=== PATIENT | male | born 1970 | race Caucasian/White ===

== ENCOUNTER 2017-05-31 00:55 | Emergency (ER) | payer MEDICAID ==
[~2017-05-31] VITALS: Ht 167.6 cm; Wt 88.0 kg
[2017-05-31 01:00] VITALS: BP 127/79
--- NOTE | 2017-05-31 01:04 | NUR ---
TO ER BED 5
--- NOTE | 2017-05-31 01:08 | NUR ---
EPatient being evaluated by physician at bedside.
[2017-05-31] MEDS ORDERED: MARIJUANA (01:10)
[2017-05-31] MEDS ORDERED: CARI350T PO (01:10)
[2017-05-31] MEDS ORDERED: ACET-2863 PO (01:10)
--- NOTE | 2017-05-31 01:11 | NUR ---
PT BIB FAMILY C/O RT FLANK PAIN S/P HX OF BILATERAL KIDNEY STONES. PAIN 8/10. HX CHRONIC PAIN TAKE NORCO AND SOMA FOR SHOULDER PAIN. PT DENIES ANY TRAUMA, PT STS "I TOOK A NORCO AND SMOKED MARIJUANA TONIGHT". PT DENIES N/V/D; SKIN IS INTACT, PALE/WARM/DRY; AAOX4, PERRL, WITH EVEN AND STEADY GAIT; LUNGS CLEAR BL, BREATHING UNLABORED; HR EVEN AND REGULAR, BL PERIPHERAL PULSES PRESENT; BS ACTIVE X4, NO TENDERNESS TO PALPATION. PT DENIES ANY FEVER, CP, SOB, OR COUGH AT THIS TIME; PT STATES 8/10 PAIN AT THIS TIME; VSS; PATIENT POSITIONED FOR COMFORT; HOB ELEVATED; BEDRAILS UP X2; BED DOWN. UA DONE.
[2017-05-31] MEDS ORDERED: HYDROmorphone PFS 2 MG/ML SYR IM ONE (01:15)
[2017-05-31 01:44] VITALS: BP 143/75
--- NOTE | 2017-05-31 01:44 | NUR ---
Patient discharged with v/s stable. Written and verbal after care instructions given and explained. Patient alert, oriented and verbalized understanding of instructions. Ambulatory with steady gait. All questions addressed prior to discharge. ID band removed. Patient advised to follow up with PMD. Rx of NORCO 5/325MG given. Patient educated on indication of medication including possible reaction and side effects. Opportunity to ask questions provided and answered.
== END 2017-05-31 01:44 | disposition home or self-care (01) ==
LOC: MED 00:55
DX: M54.5 Low back pain (principal); R03.0 Elevated blood-pressure reading, without diagnosis of hypertension; Z88.6 Allergy status to analgesic agent; F17.210 Nicotine dependence, cigarettes, uncomplicated; F12.10 Cannabis abuse, uncomplicated; Z71.6 Tobacco abuse counseling
CPT/HCPCS: 81002; 96372; 99283; J1170

== ENCOUNTER 2017-06-27 01:50 | Inpatient (IN) | payer MEDICAID ==
[~2017-06-27] VITALS: Ht 167.6 cm; Wt 86.3 kg
[~2017-06-27 01:50] MED LIST: ACET-2863 PO; CARI350T PO; MARIJUANA
[2017-06-27 02:11] VITALS: BP 123/84
--- NOTE | 2017-06-27 02:23 | NUR ---
PT ABULATED TO ER BED 04
--- NOTE | 2017-06-27 02:30 | NUR ---
PT BIB C/O CONSTIPATION, STATES HE HAS ABD PAIN R/T CONTIPATION. PT WAS SEEN HERE LAST WEEK. PT DENIES ANY TRAUMA. PT DENIES N/V/D; SKIN IS INTACT, PINK/WARM/DRY; AAOX4, PERRL, WITH EVEN AND STEADY GAIT; LUNGS CLEAR BL, BREATHING UNLABORED; HR EVEN AND REGULAR, BL PERIPHERAL PULSES PRESENT; BS ACTIVE X4, NO TENDERNESS TO PALPATION. PT DENIES ANY FEVER, CP, SOB, OR COUGH AT THIS TIME; PT STATES 5/10 PAIN AT THIS TIME; VSS; PATIENT POSITIONED FOR COMFORT; HOB ELEVATED; BEDRAILS UP X2; BED DOWN.
[2017-06-27] MEDS ORDERED: DICYCLOMINE 20 MG/2 ML VIAL IM ONE (02:40)
[2017-06-27 02:50] LABS: HEMATOCRIT 43.6 % (36-52); HEMOGLOBIN 14.4 g/dL (12.0-18.0); MEAN CORPUSCULAR HEMOGLOBIN 30 pg (27-31); MEAN CORPUSCULAR HGB CONC 33 g/dL (33-37); MEAN CORPUSCULAR VOLUME 90 fL (80-94); PLATELET COUNT (AUTO) 297 K/uL (140-450); RED BLOOD CELL COUNT(AUTO) 4.82 MIL/uL (4.20-6.10); RED CELL DISTRIBUTION WIDTH 12.5 % (11.6-13.7); WHITE BLOOD COUNT (AUTO) 13.1 K/uL (4.8-10.8)
[2017-06-27 03:00] LABS: EOSINOPHILS % (MANUAL) 1 % (0-4); LYMPHOCYTES % (MANUAL) 6 % (20-46); MONOCYTES % (MANUAL) 4 % (5-12)
[2017-06-27 03:02] LABS: CREATININE 1.2 mg/dL (0.7-1.3)
[2017-06-27 03:10] LABS: ALBUMIN 3.5 g/dL (3.4-5.0); TOTAL BILIRUBIN 0.2 mg/dL (0.0-1.0)
--- NOTE | 2017-06-27 03:15 | NUR ---
TAKE PT. TO CT
--- NOTE | 2017-06-27 03:30 | NUR ---
PT. BACK FROM CT.
[2017-06-27] MEDS ORDERED: metroNIDAZOLE 500 MG/NS PREMIX 100 ML IV ONE (04:55)
[2017-06-27] MEDS ORDERED: ONDANSETRON 4 MG/2 ML VIAL IVP ONE (04:55)
[2017-06-27] MEDS ORDERED: NACL 0.9% 1,000 ML IV ONE (04:55)
[2017-06-27] MEDS ORDERED: MORPHINE SULFATE 4 MG/ML SYR IVP ONE (04:55)
[2017-06-27] MEDS ORDERED: cefTRIAXone 1,000 MG VIAL ONE (05:09)
[2017-06-27] MEDS ORDERED: NACL 0.9% 1,000 ML IV SCH (05:12)
[2017-06-27] MEDS ORDERED: MORPHINE SULFATE 2 MG/ML SYR IVP PRN (05:15)
[2017-06-27] MEDS ORDERED: ONDANSETRON 4 MG/2 ML VIAL IM/IVP PRN (05:15)
[2017-06-27] MEDS ORDERED: DOCUSATE SODIUM 100 MG GELCAP PO PRN (05:15)
[2017-06-27] MEDS ORDERED: HYDROcodone/APAP 7.5/325 MG 1 TAB PO PRN (05:15)
[2017-06-27] MEDS ORDERED: ACETAMINOPHEN 325 MG TAB PO PRN (05:15)
--- NOTE | 2017-06-27 06:10 | NUR ---
Patient will be admitted to care of DR. PEREZ. Admited to TELEMETRY. Will go to [id number]. Belongings list completed. Report to SUSAN CASEY.
[2017-06-27 06:12] VITALS: BP 124/72
--- NOTE | 2017-06-27 06:25 | NUR ---
PT CAME FROM ER VIA [facility] AT 0615, SOON THE PATIENT ARRIVED IN HIS ROOM, HE INSISTED ON GOING OUT TO SMOKE AND MOVE HIS CAR. INFORMED HIM OF THE HOSPITAL POLICY OF NO SMOKING. PT WAS AGITATED AND KEPT ON INSISTING THAT HE SHOULD LEAVE. ELENI COIN MACHINE SUPERVISOR, JAIMEE RN LANGUAGE TEACHER, SECURITY PRESENT AND STILL INSISTED TO GO AMA, AND DR. BAY MADE AWARE. PT LEFT AMBULATORY, IV ACCESS AND TELE MONITOR WAS REMOVED.
[2017-06-27 06:47] LABS: PROTHROMBIN TIME 9.9 secs (10.8-13.4)
[2017-06-27 07:21] LABS: CHOL/HDL RATIO 3.1 (1-4.5); FREE T4 (FREE THYROXINE) 0.92 ng/dL (0.76-1.46); MAGNESIUM 2.1 mg/dL (1.8-2.4); PHOSPHORUS 3.9 mg/dL (2.5-4.9); THYROID STIMULATING HORMONE 2.09 uIU/mL (0.34-3.74)
[2017-06-27] MEDS ORDERED: PSYLLIUM 12.2 GM/PKT PO SCH (09:00)
--- NOTE | 2017-06-27 12:23 | NUR ---
CM NOTE PER FURNACE OPERATOR OIL OR GAS CHRISSY, REVIEWS SHOULD BE SENT TO BOTH [facility] AND [facility]3]. FAXED INITIAL REVIEW TO [facility] [phone] AND TO [facility]3] [phone]
== END 2017-06-27 06:25 | disposition left against medical advice (07) ==
LOC: MED 01:50 → MTU 05:21
PROVIDERS: ADMIT Family Medicine; ATTEND Family Medicine
DX: K80.00 Calculus of gallbladder with acute cholecystitis without obstruction (principal); F12.90 Cannabis use, unspecified, uncomplicated; K59.00 Constipation, unspecified; R10.9 Unspecified abdominal pain; Z53.21 Procedure and treatment not carried out due to patient leaving prior to being seen by health care provider; Z88.6 Allergy status to analgesic agent
CPT/HCPCS: 36415; 80053; 82140; 82150; 83690; 83735; 83880; 84100; 84436; 84439; 84443; 84479; 84484; 85025; 85610; 85730; 93005; 96365; 96367; 96372; 96375; 99285; J0500; J0696; J2270; J2405; J3490; J7030

== ENCOUNTER 2017-07-10 20:09 | Emergency (ER) | payer MEDICAID ==
[~2017-07-10] VITALS: Ht 167.6 cm; Wt 85.0 kg
[~2017-07-10 20:09] MED LIST changes: -ACET-2863 PO; -CARI350T PO
[2017-07-10 20:25] VITALS: BP 140/79
--- NOTE | 2017-07-10 21:54 | NUR ---
PATIENT LEFT WITHOUT BEING SEEN BY DR. LAZCANO. NO FURTHER CARE PROVIDED FOR PATIENT.
[2017-07-11] MEDS ORDERED: MAGN400S60 PO (00:57)
[2017-07-11] MEDS ORDERED: ACET-2858 PO (00:57)
[2017-07-11] MEDS ORDERED: IBUP-2213 PO (00:57)
[2017-07-11] MEDS ORDERED: DOCU-299 PO (13:49)
[2017-07-11] MEDS ORDERED: NICO14TD30 TD (13:49)
[2017-07-11] MEDS ORDERED: ACET-1182 PO (13:49)
[2017-07-11] MEDS ORDERED: ONDA2SOL45 IM/IVP (13:49)
[2017-07-11] MEDS ORDERED: TOR30I IVP (13:49)
== END 2017-07-10 21:54 | disposition left against medical advice (07) ==
LOC: MED 20:09
DX: R10.9 Unspecified abdominal pain (principal); Z53.21 Procedure and treatment not carried out due to patient leaving prior to being seen by health care provider

== ENCOUNTER 2017-07-10 22:20 | Observation (INO) | payer MEDICAID ==
[~2017-07-10] VITALS: Ht 167.6 cm; Wt 85.3 kg
[2017-07-10 22:31] VITALS: BP 115/59
--- NOTE | 2017-07-11 00:26 | NUR ---
PT AMBULATED TO ER BED 4
--- NOTE | 2017-07-11 00:26 | NUR ---
Karissa bacon in ED - 07/11/17 at 0350 by MEDDM AMBULTED TO ER BED 4
--- NOTE | 2017-07-11 00:30 | NUR ---
47 Y/O M W/C/O EPIGASTRIC PAIN, AND NAUSEA X YESTERDAY. MED HX GALLSTONES
--- NOTE | 2017-07-11 00:30 | NUR ---
PT BIB FAMILY C/O ABD PAIN/HX GALLSTONES. PT DENIES N/V/D; SKIN IS INTACT, PINK/WARM/DRY; AAOX4, PERRL, WITH EVEN AND STEADY GAIT; LUNGS CLEAR BL, BREATHING UNLABORED; HR EVEN AND REGULAR, BL PERIPHERAL PULSES PRESENT; BS ACTIVE X4, NO TENDERNESS TO PALPATION. PT DENIES ANY FEVER, CP, SOB, OR COUGH AT THIS TIME; PT STATES 5/10 PAIN AT THIS TIME; VSS; PATIENT POSITIONED FOR COMFORT; HOB ELEVATED; BEDRAILS UP X2; BED DOWN.
[2017-07-11] MEDS ORDERED: NACL 0.9% 1,000 ML IV ONE (00:37)
[2017-07-11] MEDS ORDERED: NICOTINE TRANSD SYS 21 MG/24 HR PATCH TD STA (00:37)
--- NOTE | 2017-07-11 00:39 | NUR ---
PT DR ORONA PT OK TO GO TO HIS CAR TO GRAB SOME STUFF.
[2017-07-11] MEDS ORDERED: MORPHINE SULFATE 4 MG/ML SYR IVP ONE (00:40)
[2017-07-11] MEDS ORDERED: ONDANSETRON 4 MG/2 ML VIAL IVP ONE (00:40)
[2017-07-11] MEDS ORDERED: KETOROLAC 30 MG/ML VIAL IVP ONE (00:40)
[2017-07-11] MEDS ORDERED: IBUP-2213 PO (00:57)
[2017-07-11] MEDS ORDERED: ACET-2858 PO (00:57)
[2017-07-11] MEDS ORDERED: MAGN400S60 PO (00:57)
[2017-07-11 01:03] LABS: BASOPHILS # (AUTO) 0.5 K/uL (0.00-0.22); EOSINOPHILS # (AUTO) 0.1 K/uL (0-0.4)
[2017-07-11 01:09] LABS: BASOPHILS % (AUTO) 3.5 % (0.0-2.0); EOSINOPHILS % (AUTO) 0.7 % (0.0-4.0); HEMATOCRIT 46.1 % (36-52); HEMOGLOBIN 15.5 g/dL (12.0-18.0); LYMPHOCYTES # (AUTO) 2.5 K/uL (2.0-11.5); LYMPHOCYTES % (AUTO) 17.9 % (20.5-51.1); MEAN CORPUSCULAR HEMOGLOBIN 31 pg (27-31); MEAN CORPUSCULAR HGB CONC 34 g/dL (33-37); MEAN CORPUSCULAR VOLUME 91 fL (80-94); MONOCYTES % (AUTO) 7.1 % (1.7-9.3); NEUTROPHILS # (AUTO) 9.9 K/uL (1.8-7.7); NEUTROPHILS % (AUTO) 70.8 % (42.2-75.2); PLATELET COUNT (AUTO) 343 K/uL (140-450); RED BLOOD CELL COUNT(AUTO) 5.07 MIL/uL (4.20-6.10); RED CELL DISTRIBUTION WIDTH 12.1 % (11.6-13.7)
[2017-07-11 01:13] LABS: ANION GAP 14.2 (8-16); CARBON DIOXIDE 26.4 mmol/L (21-32); CREATININE 1.2 mg/dL (0.7-1.3); POTASSIUM 3.6 mmol/L (3.5-5.1)
[2017-07-11 01:18] LABS: ALBUMIN 3.9 g/dL (3.4-5.0); TOTAL BILIRUBIN 0.1 mg/dL (0.0-1.0)
[2017-07-11] MEDS ORDERED: LEVOFLOXACIN 750 MG/D5W PREMIX 150 ML IV ONE (01:20)
--- NOTE | 2017-07-11 01:45 | NUR ---
HOUSE SUP CALLED RDING PATCH D/T NOT AVAILABLE IN ER.
--- NOTE | 2017-07-11 02:02 | NUR ---
PT SLEEPING, VSS. FAMILY AT BEDSIDE.
[2017-07-11] MEDS ORDERED: NACL 0.9% 1,000 ML IV SCH (02:33)
[2017-07-11] MEDS ORDERED: ONDANSETRON 4 MG/2 ML VIAL IM/IVP PRN (02:35)
[2017-07-11] MEDS ORDERED: KETOROLAC 30 MG/ML VIAL IVP PRN (02:35)
[2017-07-11] MEDS ORDERED: ACETAMINOPHEN 325 MG TAB PO PRN (02:35)
[2017-07-11] MEDS ORDERED: DOCUSATE SODIUM 100 MG GELCAP PO PRN (02:35)
--- NOTE | 2017-07-11 02:52 | NUR ---
Patient will be admitted to care of DR MARY. Admited to TELEMETRY. Will go to room 119B. Belongings list completed. Report to SUSAN HERMOSILLO..
[2017-07-11 02:53] LABS: PROTHROMBIN TIME 9.6 secs (10.8-13.4)
--- NOTE | 2017-07-11 03:00 | NUR ---
PT TRASFERED TO FLOOR VIA GURNEY, ACCOMPANIED BY RN AND EMT.
[2017-07-11 03:02] LABS: APPEARANCE,URINE CLEAR (CLEAR); BILIRUBIN,URINE NEGATIVE (NEGATIVE); BLOOD, URINE NEGATIVE (NEGATIVE); COLOR,URINE YELLOW (YELLOW); LEUKOCYTE ESTERASE ,URINE NEGATIVE (NEGATIVE); NITRITE, URINE NEGATIVE (NEGATIVE); UGLUCOSE NEGATIVE (NEGATIVE)
[2017-07-11 03:04] LABS: CHOL/HDL RATIO 3.4 (1-4.5); FREE T4 (FREE THYROXINE) 0.84 ng/dL (0.76-1.46); MAGNESIUM 2.1 mg/dL (1.8-2.4); PHOSPHORUS 3.9 mg/dL (2.5-4.9); THYROID STIMULATING HORMONE 1.42 uIU/mL (0.34-3.74)
[2017-07-11] MEDS ORDERED: NICOTINE TRANSD SYS 14 MG/24 HR PATCH TD SCH ×2 (03:05→09:00)
[2017-07-11 03:09] LABS: BARBITURATE, URINE NEG. ng/ml (NEG <=200); BENZODIAZEPINE, URINE NEG. ng/mL (NEG <=200); CANNABINOID, URINE POS. ng/mL (NEG <=50); COCAINE, URINE NEG. ng/mL (NEG <=300); OPIATE, URINE NEG. ng/mL (NEG <=2000); PHENCYCLIDINE SCREEN,URINE NEG. ng/mL (NEG <=25)
--- NOTE | 2017-07-11 03:15 | NUR ---
Admitted from , with chief complaint of ABDOMINAL PAIN , 47 y/o ,Male, Appropriate, oriented to call light, bed, phone,television, bathroom, smoking policy, visiting hours, procedures, ID bracelet on. Belongings list checked. AT BEDSIDE, PT AAO, CLAIMED CAN I HAVE CRACKERS, EXPLAINED PT NPO, BODY ASSESSMENT, SKIN INTACT
[2017-07-11 03:18] VITALS: BP 104/51
--- NOTE | 2017-07-11 03:58 | NUR ---
SMOKING CESSATION TEACHING GIVEN
--- NOTE | 2017-07-11 05:52 | NUR ---
PT MOTHER AT BEDSIDE, PT AAO, WANTS TO EAT, APPLIED SEQUENTIAL BUT PT REFUSED, PT AWARE NPO, IVF ONGOING WELL TOLERATED.
[2017-07-11] MEDS ORDERED: cefTRIAXone 1,000 MG VIAL ONE (06:04)
--- NOTE | 2017-07-11 06:45 | NUR ---
ROCEPHIN THAT STARTED AT 0609 BY VELASQUEZ PADILLA RN.FINISHED AT 0640.PT TOLERATED WELL.
--- NOTE | 2017-07-11 07:28 | NUR ---
PT SLEEPING AT THIS TIME, WILL ENDORSED TO TIFFANY ,IVF ONGOING WELL TOLERATED, NO ADVERSE REACTION FROM ROCEPHIN
--- NOTE | 2017-07-11 07:37 | NUR ---
TALKED TO PHARMACIST REGARDING NICOTINE PATCH, PER PHARMACIST WILL START 0900
--- NOTE | 2017-07-11 08:00 | NUR ---
RECEIVED REPORT FROM AUDIT MACHINE OPERATOR RN FOR CONTINUITY OF CARE. PATIENT SLEEPING , BUT EASILY AWAKE NO S/S OF RESP DISTRESS NOTED , NO COMPLAIN OF PAIN IV SITE RIGHT HAND GAUGE 22 INTACT AND PATENT. IVF INFUSING WELL . PLAN OF CARE DISCUSSED WITH THE PATIENT VITALS STABLE WILL CONTINUE TO MONITOR.
--- NOTE | 2017-07-11 09:30 | NUR ---
NO MEDS DUE TO BE GIVEN , DENIES ANY PAIN AWARE OF GOING TO SURGERY , KEPT PT NPO
[2017-07-11 10:09] VITALS: BP 110/69
--- NOTE | 2017-07-11 11:29 | NUR ---
RECEIVED A CALL FRO JET FROM [facility] ABOUT THIS PATIENT. I FAXED FACE SHEET, ER REPORT AND H&P TO HER AT [phone] PHONE [phone]. SHE SAID IF THIS PATIENT WILL NEED SURGERY, SHE WANTS HIM TRANSFERED TO [facility]. DR. NATHALIE GATICA.
--- NOTE | 2017-07-11 11:47 | NUR ---
SPOKE WITH OSWMYA FROM [facility]. I FAXED HER THE ORDER FOR PATIENT TO BE TRANSFERED TO CONTRACTED FACILITY. SHE SAID HE WILL GO TO [place] [id number] [facility] [id number] AUTH FOR TRANSPORT IS [id number]. SHE ASKED THAT OUR DOCTOR CALL DR. DURAN , . I INFORMED DR. ZELAYA.
--- NOTE | 2017-07-11 13:31 | NUR ---
RECEIVED A CALL FROM SOWMYA FROM [employer] THE PATIENT WILL GO TO MED SURG FLOOR ROOM 306A UNDER DR. DONALD DURAN. CALL REPORT TO [phone]. WILL INFORM TIFFANY DAVIS.
[2017-07-11] MEDS ORDERED: ACET-1182 PO (13:49)
[2017-07-11] MEDS ORDERED: NICO14TD30 TD (13:49)
[2017-07-11] MEDS ORDERED: TOR30I IVP (13:49)
[2017-07-11] MEDS ORDERED: DOCU-299 PO (13:49)
[2017-07-11] MEDS ORDERED: ONDA2SOL45 IM/IVP (13:49)
--- NOTE | 2017-07-11 14:37 | NUR ---
PATIENT REFUSES TO BE TRANSFERRED TO [facility] VIA AMBULANCE. DR LOMBARDI SPOKE TO THE PATIENT AND EXPLAINED TO HIM THAT HE CAN NOT DRIVE HIMSELF AND HE WILL LOSE HIS TRANSFER IF HE DECIDES TO LEAVE. RISKS OF LEAVING AGAINST MEDICAL ADVICE GIVEN TO THE PATIENT. PATIENT VERBALIZED UNDERSTANDING. PATIENT REFUSED TO SIGN AMA PAPER. IV LINE DISCONTINUED. PATIENT LEFT WITH ALL HIS BELONGINGS
--- NOTE | 2017-07-11 16:08 | NUR ---
I CALLED [facility] AND SPOKE WITH SOWMYA AND INFORMED HER THAT PATIENT ELOPED. PRAVIN DAVIS TO CALL [facility] TO INFORM THEM.
--- NOTE | 2017-07-11 16:12 | NUR ---
SPOKE WITH ARIANA FROM [facility] AND INFORMED THEM THAT PATIENT WILL NO LONGER BE TRANSFERRED
[2017-07-12 06:15] LABS: T4 (THYROXINE) 6.8 ug/dL (4.5-12.0)
== END 2017-07-11 14:35 | disposition left against medical advice (07) ==
LOC: MED 22:20 → MTU 07-11 02:39
PROVIDERS: ADMIT Family Medicine Sports Medicine; ATTEND Family Medicine Sports Medicine
DX: K80.20 Calculus of gallbladder without cholecystitis without obstruction (principal); N20.0 Calculus of kidney; R00.0 Tachycardia, unspecified; F17.200 Nicotine dependence, unspecified, uncomplicated; F19.10 Other psychoactive substance abuse, uncomplicated; E66.9 Obesity, unspecified; Z68.30 Body mass index [BMI] 30.0-30.9, adult
CPT/HCPCS: 36415; 71010; 76705; 80053; 80061; 80305; 81003; 83036; 83605; 83690; 83735; 84100; 84436; 84439; 84443; 84479; 85025; 85610; 85730; 87081; 93005; 96361; 96365; 96367; 96375; 99285; G0378; G0482; J0696; J1885; J1956; J7030; J7060; Q0092; J2270; J2405

== ENCOUNTER 2017-08-05 03:12 | Emergency (ER) | payer MEDICAID ==
[~2017-08-05] VITALS: Ht 167.6 cm; Wt 86.2 kg
[~2017-08-05 03:12] MED LIST changes: +ACET-1182 PO; +ACET-2858 PO; +DOCU-299 PO; +IBUP-2213 PO; +MAGN400S60 PO; +NICO14TD30 TD; +ONDA2SOL45 IM/IVP; +TOR30I IVP
[2017-08-05 03:48] VITALS: BP 138/63
--- NOTE | 2017-08-05 03:55 | NUR ---
Patient to OF.
--- NOTE | 2017-08-05 04:30 | NUR ---
[place] from all abd incisions removed. Large amt of redness noted around each incision with tissue build up. Slight bleeding noted from staple wounds but stopped within a couple minutes. Davin well.
[2017-08-05] MEDS ORDERED: BACITRACIN OINT 500 UNITS/GM PKT TP ONE (04:35)
[2017-08-05 05:20] VITALS: BP 128/76
--- NOTE | 2017-08-05 05:20 | NUR ---
Patient discharged with v/s stable. Written and verbal after care instructions given and explained. Patient verbalized understanding. Ambulatory with steady gait. All questions addressed prior to discharge. Advised to follow up with PMD.
== END 2017-08-05 05:20 | disposition home or self-care (01) ==
LOC: MED 03:12
DX: Z48.02 Encounter for removal of sutures (principal); Z90.49 Acquired absence of other specified parts of digestive tract; F11.10 Opioid abuse, uncomplicated
CPT/HCPCS: 99281

== ENCOUNTER 2017-10-25 18:26 | Emergency (ER) | payer MEDICAID ==
[~2017-10-25] VITALS: Ht 167.6 cm; Wt 88.2 kg
[2017-10-25 18:58] VITALS: BP 118/78
--- NOTE | 2017-10-25 19:42 | NUR ---
AMBULATED TO ER BED OF2
--- NOTE | 2017-10-25 19:55 | NUR ---
PATIENT PRESENTS TO ED WITH c/o runny nose, cough, body aches, fever x1 day . PT STATES symptoms started a day ago . DENIES N/V/D; SKIN IS PINK/WARM/DRY; AAOX4 WITH EVEN AND STEADY GAIT; LUNGS CLEAR BL; HR EVEN AND REGULAR; PT DENIES ANY FEVER, CP, SOB, OR COUGH AT THIS TIME; PATIENT STATES PAIN OF 6/10 AT THIS TIME; VSS; PATIENT POSITIONED FOR COMFORT; HOB ELEVATED; BEDRAILS UP X2; BED DOWN. ER MD MADE AWARE OF PT STATUS.
[2017-10-25] MEDS ORDERED: IBUPROFEN 800 MG TAB PO ONE (20:00)
[2017-10-25] MEDS ORDERED: IBUPROFEN 800 MG TAB ONE (20:04)
[2017-10-25 20:17] VITALS: BP 116/78
--- NOTE | 2017-10-25 20:17 | NUR ---
Patient discharged with v/s stable. Written and verbal after care instructions given and explained. Patient alert, oriented and verbalized understanding of instructions. Ambulatory with steady gait. All questions addressed prior to discharge. ID band removed. Patient advised to follow up with PMD. Rx of motrin 800mg, promethazine hcl/dextronethtrophan given. Patient educated on indication of medication including possible reaction and side effects. Opportunity to ask questions provided and answered.
== END 2017-10-25 20:17 | disposition home or self-care (01) ==
LOC: MED 18:26
DX: B34.9 Viral infection, unspecified (principal); Z90.49 Acquired absence of other specified parts of digestive tract; Z88.6 Allergy status to analgesic agent
CPT/HCPCS: 99283

== ENCOUNTER 2018-03-30 00:01 | Emergency (ER) | payer MEDICAID ==
[~2018-03-30] VITALS: Ht 167.6 cm; Wt 82.3 kg
[2018-03-30 00:04] VITALS: BP 135/79
[2018-03-30 02:44] VITALS: BP 130/75
[2018-03-30] MEDS ORDERED: KETOROLAC 60 MG/2 ML VIAL IM ONE (03:00)
== END 2018-03-30 02:44 | disposition home or self-care (01) ==
LOC: MED 00:01
DX: M79.1 Myalgia (principal); R05 Cough; K46.9 Unspecified abdominal hernia without obstruction or gangrene; R50.9 Fever, unspecified; F17.210 Nicotine dependence, cigarettes, uncomplicated; Z90.49 Acquired absence of other specified parts of digestive tract; Z88.8 Allergy status to other drugs, medicaments and biological substances
CPT/HCPCS: 96372; 99283; J1885

== ENCOUNTER 2018-08-09 01:23 | Emergency (ER) | payer MEDICAID ==
[~2018-08-09] VITALS: Ht 167.6 cm; Wt 83.9 kg
[~2018-08-09 01:23] MED LIST changes: -ACET-2858 PO; +HYDR-5092 PO
[2018-08-09 01:27] VITALS: BP 124/80
[2018-08-09] MEDS ORDERED: KETOROLAC 30 MG/ML VIAL IM ONE (03:05)
[2018-08-09] MEDS ORDERED: HYDROcodone/APAP 5/325 MG 1 TAB TAB PO ONE (03:05)
[2018-08-09 03:32] VITALS: BP 124/80
== END 2018-08-09 03:32 | disposition home or self-care (01) ==
LOC: MED 01:23
DX: K43.9 Ventral hernia without obstruction or gangrene (principal); F17.210 Nicotine dependence, cigarettes, uncomplicated; Z90.49 Acquired absence of other specified parts of digestive tract; Z79.1 Long term (current) use of non-steroidal anti-inflammatories (NSAID); Z79.899 Other long term (current) drug therapy
CPT/HCPCS: 99283

== ENCOUNTER 2018-09-20 02:45 | Emergency (ER) | payer MEDICAID ==
[~2018-09-20] VITALS: Ht 167.6 cm; Wt 81.6 kg
[2018-09-20 02:54] VITALS: BP 119/63
[2018-09-20] MEDS ORDERED: KETOROLAC 60 MG/2 ML VIAL IM ONE (03:30)
[2018-09-20 04:00] VITALS: BP 119/63
== END 2018-09-20 04:00 | disposition home or self-care (01) ==
LOC: MED 02:45
DX: K42.9 Umbilical hernia without obstruction or gangrene (principal); Z71.6 Tobacco abuse counseling; Z90.49 Acquired absence of other specified parts of digestive tract; Z79.899 Other long term (current) drug therapy; Z79.1 Long term (current) use of non-steroidal anti-inflammatories (NSAID)
CPT/HCPCS: 96372; 99283; J1885

== ENCOUNTER 2018-10-11 02:44 | Emergency (ER) | payer MEDICAID ==
[~2018-10-11] VITALS: Ht 167.6 cm; Wt 81.6 kg
[2018-10-11 02:51] VITALS: BP 127/85
[2018-10-11] MEDS ORDERED: IBUPROFEN 400 MG TAB PO ONE (05:25)
[2018-10-11 05:37] VITALS: BP 117/75
== END 2018-10-11 05:37 | disposition home or self-care (01) ==
LOC: MED 02:44
DX: T14.8XXA Other injury of unspecified body region, initial encounter (principal); Z90.49 Acquired absence of other specified parts of digestive tract; Z79.899 Other long term (current) drug therapy; Z79.1 Long term (current) use of non-steroidal anti-inflammatories (NSAID); W22.8XXA Striking against or struck by other objects, initial encounter; Y93.89 Activity, other specified; Y92.89 Other specified places as the place of occurrence of the external cause; Y99.8 Other external cause status
CPT/HCPCS: 99282

== ENCOUNTER 2018-12-08 19:49 | Emergency (ER) | payer MEDICAID ==
[~2018-12-08] VITALS: Ht 167.6 cm; Wt 81.6 kg
[2018-12-08 19:51] VITALS: BP 111/77
--- NOTE | 2018-12-08 19:56 | NUR ---
PT TAKEN TO BED 7
--- NOTE | 2018-12-08 20:03 | NUR ---
48/M PRESENTS TO ED, C/O N/V [id number] AND PERIUMBILICAL HERNIA PAIN, SINCE LAST NIGHT. REPORTS DIARRHEA THIS AM. PT DENIES FEVER, CP, SOB, CONSTIPATION, DYSURIA. PT AOX4, GCS 15, RR EVEN AND UNLABORED. LUNG SOUNDS CLEAR BL. BS ACTIVE X4, ABD SOFT ROUND TENDER TO PERIUMBILICAL, DENIES LOWER QUADRANT TENDERNESS. HX UMBILICAL HERNIA, CHOLECYSTECTOMY OTC IBUPROFEN LAST NIGHT WITH NO RELIEF
[2018-12-08] MEDS ORDERED: ONDANSETRON 4 MG ODT PO ONE (20:10)
--- NOTE | 2018-12-08 20:23 | NUR ---
Dr. Guzman evaluating patient at bedside.
[2018-12-08] MEDS ORDERED: KETOROLAC 30 MG/ML VIAL IM ONE (20:25)
--- NOTE | 2018-12-08 20:35 | NUR ---
PT REFUSED TORADOL IM, PT REQUESTING VICODIN OR PO PAIN MED, ER MD MADE AWARE. PER ER MD, PT CAN JUST TAKEN RX NORCO AT HOME.
[2018-12-08 20:39] VITALS: BP 108/64
--- NOTE | 2018-12-08 20:39 | NUR ---
Patient discharged with v/s stable. Written and verbal after care instructions given and explained. Patient alert, oriented and verbalized understanding of instructions. Ambulatory with steady gait. All questions addressed prior to discharge. ID band removed. Patient advised to follow up with PMD. Rx of NORCO, COLACE given. Patient educated on indication of medication including possible reaction and side effects. Opportunity to ask questions provided and answered.
== END 2018-12-08 20:39 | disposition home or self-care (01) ==
LOC: MED 19:49
DX: K43.2 Incisional hernia without obstruction or gangrene (principal); Z79.891 Long term (current) use of opiate analgesic; Z79.1 Long term (current) use of non-steroidal anti-inflammatories (NSAID); Z79.899 Other long term (current) drug therapy; Z90.49 Acquired absence of other specified parts of digestive tract
CPT/HCPCS: 99283; Q0162; J1885

== ENCOUNTER 2019-01-04 12:34 | Inpatient (IN) | payer MEDICAID ==
[~2019-01-04] VITALS: Ht 167.6 cm; Wt 81.2 kg
[2019-01-04 13:10] VITALS: BP 119/77
--- NOTE | 2019-01-04 13:17 | NUR ---
PT WHEEL CHAIR ASSISTED BACK TO THE LOBBY BY HIS FAMILY
--- NOTE | 2019-01-04 13:57 | NUR ---
PT BIB WHEELCHAIR TO ER BED 9
--- NOTE | 2019-01-04 13:59 | NUR ---
PT REFUSING TO CHANGE INTO GOWN, REFUSED NURSE ASSESSMENT AT THIS TIME, EDMD AWARE.
--- NOTE | 2019-01-04 14:30 | NUR ---
CAME BACK FROM LUNCH BREAK, PER COLEMAN RN, PT REFUSED TO DO PHYSICAL ASSESSMENT. PT IS SLEEPING AT THIS TIME. BEDSIDEM ONITOR SHOWS SR. O2 SATS 98%. NO S/S OF RESPIRATORY DISTRESS NOTED.
[2019-01-04] MEDS ORDERED: NACL 0.9% 1,000 ML IV ONE (15:58)
[2019-01-04] MEDS ORDERED: NACL 0.9% 1,000 ML IV SCH (15:58)
[2019-01-04] MEDS ORDERED: DICYCLOMINE HCL LIQUID 10 MG/5 ML UDC PO ONE (16:00)
[2019-01-04] MEDS ORDERED: MORPHINE SULFATE 4 MG/ML SYR IVP ONE (16:00)
[2019-01-04] MEDS ORDERED: PROMETHAZINE 25 MG/ML VIAL IM ONE (16:00)
[2019-01-04 16:32] LABS: BASOPHILS # (AUTO) 0.1 K/uL (0.00-0.22); BASOPHILS % (AUTO) 0.4 % (0.0-2.0); EOSINOPHILS # (AUTO) 0.1 K/uL (0-0.4); EOSINOPHILS % (AUTO) 0.4 % (0.0-4.0); HEMATOCRIT 54.7 % (36-52); HEMOGLOBIN 18.4 g/dL (12.0-18.0); LYMPHOCYTES # (AUTO) 1.4 K/uL (2.0-11.5); LYMPHOCYTES % (AUTO) 7.1 % (20.5-51.1); MEAN CORPUSCULAR HEMOGLOBIN 31 pg (27-31); MEAN CORPUSCULAR HGB CONC 34 g/dL (33-37); MEAN CORPUSCULAR VOLUME 90.9 fL (80-94); MONOCYTES # (AUTO) 1.1 K/uL (0.8-1.0); MONOCYTES % (AUTO) 5.7 % (1.7-9.3); NEUTROPHILS # (AUTO) 16.8 K/uL (1.8-7.7); NEUTROPHILS % (AUTO) 86.4 % (42.2-75.2); PLATELET COUNT (AUTO) 389 K/uL (140-450); RED BLOOD CELL COUNT(AUTO) 6.02 MIL/uL (4.20-6.10); RED CELL DISTRIBUTION WIDTH 13.1 % (11.6-13.7); WHITE BLOOD COUNT (AUTO) 19.5 K/uL (4.8-10.8)
--- NOTE | 2019-01-04 17:00 | NUR ---
PT STATED PAIN RELIVED AFTER PAIN MEDICATION, GIRLFRIEND AT BEDSIDE.
[2019-01-04 17:09] LABS: ALBUMIN 4.2 g/dL (3.4-5.0); AMYLASE 58 U/L (25-115); ANION GAP 14.5 (8-16); ASPARTATE AMINOTRANSFERASE 26 U/L (15-37); CARBON DIOXIDE 29.2 mmol/L (21-32); CHLORIDE 101 mmol/L (98-107); CREATININE 1.1 mg/dL (0.7-1.3); GFR ARICAN-AMERICAN 91 mL/min (>90); GLUCOSE 134 mg/dL (74-106); POTASSIUM 4.7 mmol/L (3.5-5.1); SODIUM SERUM 140 mmol/L (136-145); TOTAL BILIRUBIN 0.5 mg/dL (0.0-1.0)
[2019-01-04 17:24] LABS: UREA NITROGEN, BLOOD 12 mg/dL (7-18)
[2019-01-04 17:25] LABS: LIPASE 113 U/L (73-393)
[2019-01-04] MEDS ORDERED: HALOPERIDOL IM 5 MG/ML VIAL IM ONE (17:25)
[2019-01-04] MEDS ORDERED: diphenhydrAMINE 50 MG/ML VIAL IM ONE (17:25)
--- NOTE | 2019-01-04 18:30 | NUR ---
PT SLEEPING BUT AROUSABLE, PT STATED PAIN RELIVED. CONNIEFRIEND AT BEDSIDE.
[2019-01-04] MEDS ORDERED: NACL 0.9% 2,000 ML IV SCH (18:44)
--- NOTE | 2019-01-04 19:11 | NUR ---
REPORT RECIEVED FROM DAY SHIFT RN, RICARDA. PATIENT IN BED SLEEPING. EASILY AROUSABLE. ACTING APPROPRIATE.
[2019-01-04] MEDS ORDERED: ACETAMINOPHEN 325 MG TAB PO PRN (19:25)
[2019-01-04] MEDS ORDERED: MORPHINE SULFATE 2 MG/ML SYR IVP PRN (19:25)
[2019-01-04] MEDS ORDERED: ONDANSETRON 4 MG/2 ML VIAL IM/IVP PRN (19:25)
[2019-01-04] MEDS ORDERED: DOCUSATE SODIUM 100 MG GELCAP PO PRN (19:25)
[2019-01-04] MEDS ORDERED: HYDROcodone/APAP 7.5/325 MG 1 TAB PO PRN (19:25)
--- NOTE | 2019-01-04 19:40 | NUR ---
PATIENT GIVEN URINAL TO COLLECT URINE SAMPLE.
[2019-01-04 20:11] LABS: APPEARANCE,URINE CLEAR (CLEAR); BILIRUBIN,URINE NEGATIVE (NEGATIVE); BLOOD, URINE NEGATIVE (NEGATIVE); COLOR,URINE YELLOW (YELLOW); LEUKOCYTE ESTERASE ,URINE NEGATIVE (NEGATIVE); NITRITE, URINE NEGATIVE (NEGATIVE); UGLUCOSE NEGATIVE (NEGATIVE)
[2019-01-04 20:15] LABS: BARBITURATE, URINE NEG. ng/ml (NEG <=200); BENZODIAZEPINE, URINE NEG. ng/mL (NEG <=200); CANNABINOID, URINE POS. ng/mL (NEG <=50); COCAINE, URINE NEG. ng/mL (NEG <=300); OPIATE, URINE POS. ng/mL (NEG <=2000); PHENCYCLIDINE SCREEN,URINE NEG. ng/mL (NEG <=25)
--- NOTE | 2019-01-04 20:32 | NUR ---
PATIENT ADMITTED TO THE CARE OF DR DOMINGUEZ. TAKEN BY WHEELCHAIR TO [facility] FLOOR ROOM 105-B. PATIENT STABLE DURING TRANSFER. REPORT GIVEN TO FLOOR NURSE.
[2019-01-04 20:35] VITALS: BP 138/92
--- NOTE | 2019-01-04 20:35 | NUR ---
RECEIVED PT REPORT FROM ALEXIS RN AT BEDSIDE PT TRANSPORTED VIA W/C TO ROOM 105 AND AMBULATED TO BED A. PT PROMPTLY VOMITED A LARGE AMOUNT X1. PT AOX2 AND IS DROWSY BUT AROUSABLE TO NAME AND LIGHT TOUCH. PT HAS NO C/O OF PAIN AT THIS TIME. LUNGS ARE CLEAR, BELLY IS DISTENDED AND FIRM BUT NOT RIDGED. BOWEL SOUNDS HYPOACTIVE. SKIN INTACT AND PT HAS 20GUAGE ON LEFT F/ARM INTACT AND FLUSHED PATENT. FAMILY AT BEDSIDE. PLATING ENGINEER, GLORIA PASSED INSTRUCTIONS TO PHONE DR. PEREZ, SURGEON, WHEN PT ARRIVES IN ROOM. DR. PEREZ CALLED AND MESSAGE LEFT THAT PT ARRIVED IN ROOOM 105A AND TO PHONE HOSPITAL BACK.
[2019-01-04 21:03] LABS: PROTHROMBIN TIME 9.6 secs (10.8-13.4)
--- NOTE | 2019-01-04 21:05 | NUR ---
LABORER MINE CALLED DR. PEREZ AND WAS ABLE TO REACH HIM. INSTRUCTIONS GIVEN TO DISREGARD ORDER FOR SBO FOLLOW THROUGH AT THIS TIME. PRIMARY NURSE ASKED ABOUT NG TUBE, DR. PEREZ SAID NO NEED FOR NG TUBE AT THIS TIME. HE SAID HE WILL SEE PT IN THE AM. HE DID GIVE ORDERS FOR ALL PRE OP WORK UP, X-RAY, EKG AND BLOOD WORK. PT ALREADY HAD EKG DONE AT BEDSIDE IN ER. CHEST X-RAY WAS DONE AT BEDSIDE AT 2044. HE DID GIVEN TORB FOR ROCEPHIN 1GM Q12H AND FLAGYL 500MG Q 8HRS. DR. GAO AWARE AND IN AGREEMENT WITH CHRIS GARCIA.
--- NOTE | 2019-01-04 21:25 | NUR ---
PT VOIDED 100MLS IN URINAL AT BEDSIDE.
[2019-01-04] MEDS ORDERED: metroNIDAZOLE 500 MG/NS PREMIX 100 ML IV SCH (21:30)
--- NOTE | 2019-01-04 21:40 | NUR ---
IV FLUID N/S STARTED AT 100MLS/HR. AND ROCEPHIN HUNG AT 100MLS/HR.
[2019-01-04] MEDS ORDERED: cefTRIAXone 1,000 MG VIAL ONE (21:43)
[2019-01-04 21:52] LABS: MAGNESIUM 2.1 mg/dL (1.8-2.4); PHOSPHORUS 4.1 mg/dL (2.5-4.9); THYROID STIMULATING HORMONE 5.16 uIU/mL (0.34-3.74)
[2019-01-04] MEDS: NACL 0.9% 1,000 ML IV SCH (22:04)
--- NOTE | 2019-01-04 22:22 | NUR ---
FLAGYL HUNG ORDERED AT 100MLS/HR. PT USED URINAL AT BEDSIDE. FAMILY ASSISTED WITH ADMISSION QUESTIONS. THEN LEFT TO GO HOME.
[2019-01-05] VITALS: BP 113/71
--- NOTE | 2019-01-05 00:15 | NUR ---
PT IN BED SLEEPING V/S FOLLOWS T 98.7 P 85 R 18 B/P 113/71 02 94% ON ROOM AIR. ALL FALLS PRECAUTIONS IN PLACE AND CALL GERONIMO IN REACH.
--- NOTE | 2019-01-05 02:00 | NUR ---
PT C/O SEVERE PAIN IN ABDOMEN 04/24, GIVEN MORPHINE IVP WILL MONITOR FOR EFFECT. PT PLACED ON FALLS PRECAUTIONS DUE TO ALOC OF AOX2
--- NOTE | 2019-01-05 04:30 | NUR ---
PT GIVEN NORCO FOR MODERATE PAIN. HE WAS PULLED UP IN BED AND MADE COMFORTABLE. PT RUNNING ORDERED FLAGYL AT 100MLS/HR.
[2019-01-05] MEDS ORDERED: metroNIDAZOLE 500 MG/NS PREMIX 100 ML IV SCH (05:00)
[2019-01-05] MEDS: NACL 0.9% 1,000 ML IV SCH (05:25)
--- NOTE | 2019-01-05 05:49 | NUR ---
DR. PEREZ CALLED TO CHECK ON PT STATUS UPDATED THAT TESTS WERE DONE, AND CURRENT STATE OF PT. HE SAID THAT HE WILL BE HERE THIS AM TO CONSULT PT AND TO KEEP PT NPO.
[2019-01-05 07:12] LABS: BASOPHILS % (AUTO) 0.2 % (0.0-2.0); EOSINOPHILS % (AUTO) 0.1 % (0.0-4.0); HEMATOCRIT 51.3 % (36-52); HEMOGLOBIN 17.2 g/dL (12.0-18.0); LYMPHOCYTES # (AUTO) 0.9 K/uL (2.0-11.5); LYMPHOCYTES % (AUTO) 7.7 % (20.5-51.1); MEAN CORPUSCULAR HEMOGLOBIN 30 pg (27-31); MEAN CORPUSCULAR HGB CONC 34 g/dL (33-37); MEAN CORPUSCULAR VOLUME 90.3 fL (80-94); MONOCYTES % (AUTO) 8.5 % (1.7-9.3); NEUTROPHILS # (AUTO) 9.7 K/uL (1.8-7.7); NEUTROPHILS % (AUTO) 83.5 % (42.2-75.2); PLATELET COUNT (AUTO) 367 K/uL (140-450); RED BLOOD CELL COUNT(AUTO) 5.68 MIL/uL (4.20-6.10); RED CELL DISTRIBUTION WIDTH 13.3 % (11.6-13.7); WHITE BLOOD COUNT (AUTO) 11.6 K/uL (4.8-10.8)
--- NOTE | 2019-01-05 07:25 | NUR ---
REPORT GIVEN TO ANGELINA RN AND ENID RN NURSES AT BEDSIDE FOR CONTINUITY OF CARE, PT IN STABLE CONDITION.
--- NOTE | 2019-01-05 07:26 | NUR ---
RECEIVED BEDSIDE REPORT FROM COUNTER STACKER NURSE. PATIENT ALERT AND ORIENTED TO PERSON, PLACE, DATE AND TIME. NO COMPLAINTS OF PAIN, NO SIGNS OF DISTRESS ON RA, PATIENT IS CONTINENT URINAL AT BEDSIDE, PATIENT HAS WEAKNESS, AMBULATE WITH ASSIST, FALL PRECAUTIONS IN PLACE, NPO SIGNS POSTED, DR. PEREZ TO SEE PATIENT. IV SITE HU LEFT FOREARM, 20G NS @ 100, CLEAN DRY AND INTACT, BED IN LOW POSITION AND CALL LIGHT WITHIN REACH.
[2019-01-05 07:28] LABS: PROTHROMBIN TIME 9.7 secs (10.8-13.4)
[2019-01-05 07:34] LABS: ANION GAP 17.3 (8-16); CARBON DIOXIDE 24.4 mmol/L (21-32); POTASSIUM 3.7 mmol/L (3.5-5.1)
--- NOTE | 2019-01-05 07:46 | NUR ---
PATIENT HAS BEEN SCREENED AND CATEGORIZED MODERATE NUTRITION RISK. PATIENT WILL BE SEEN WITHIN 3-5 DAYS OF ADMISSION. 01/07/19-01/09/[address]
[2019-01-05 08:00] VITALS: BP 116/73
[2019-01-05] MEDS ORDERED: LACTOBACILLUS RHAMNOSUS GG 1 EACH CAP PO SCH (09:00)
--- NOTE | 2019-01-05 09:05 | NUR ---
PATIENT STATES HE DOES NOT WANT TO DO ANY FURTHER SCANS. TOLD HIM THE CT SCAN WOULD BE CLEARER WITH CONTRAST AND DR PEREZ THE SURGEON RECOMMENDS IT. HE SAID HE DID A CT ALREADY AND DOES NOT WANT TO DO ANY MORE AT THIS TIME. DR HSIEH IS AWARE AND CAME TO TALK TO THE PATIENT. PATIENT WANTS TO GO AMA EVEN AFTER ALL THE RISKS WERE EXPLAINED. PATIENT REFUSED TO SIGN AMA FORM AND STATES HE WILL LEAVE ONCE HIS RIDE GETS HERE. REMOVED IV, TIP INTACT. ID BANDS REMOVED. Addendum: 01/05/19 at 0908 by Jenni Whelan RN REGISTERED PHLEBOTOMIST PART TIME ALSO AWARE OF PATIENT GOING AMA.
[2019-01-05 09:10] LABS: MAGNESIUM 1.7 mg/dL (1.8-2.4); PHOSPHORUS 4.7 mg/dL (2.5-4.9)
[2019-01-05] MEDS ORDERED: MAGNESIUM OXIDE 400 MG TAB PO SCH (09:30)
--- NOTE | 2019-01-05 10:03 | NUR ---
MONICA BORRERO, CALLED. PATIENT GAVE CONSENT TO TALK TO ABOUT PATIENTS INFORMATION. SHE IS AWARE THAT THE PATIENT WANTS TO GO AGAINST MEDICAL ADVICE AND REFUSED CT SCAN WITH CONTRAST. SHE SAID SHE IS COMING OVER RIGHT NOW
--- NOTE | 2019-01-05 10:59 | NUR ---
PATIENT BELIEVES THAT WE ARE DOING A CT SCAN W CONTRAST AGAIN FOR INSURANCE PURPOSES, HE STATES WE ARE JUST DOING IT FOR MONEY. DR PEREZ EXPLAINED TO HIM EARLIER THAT HE DOES HERNIA REPAIRS W ROBOTS AND WE DONT HAVE ROBOTS HERE. SO PATIENT THINKS WE ARE DOING EXTRA SCANS JUST TO KEEP HIM HERE. DR GARCIA AWARE, HE SAID TO CALL DR PEREZ AND TELL HIM PATIENT REFUSED.
--- NOTE | 2019-01-05 11:12 | NUR ---
DR PEREZ WAS CALLED AND HE SAID TO DO SMALL BOWEL FOLLOW THROUGH WITH 1-2 CUPS OF ORAL CONTRAST. TOLD DR HSIEH AND SHE WENT IN TO EXPLAIN TO THE PATIENT ABOUT THE SMALL BOWEL FOLLOW THROUGH. PATIENT REFUSED HE SAID HE IS GOING AMA AND WILL NOT DO THE SMALL BOWEL FOLLOW THROUGH. GISSELL ANDERSON AT BEDSIDE, SHE SAID "WHY DONT YOU STAY?" HIS RESPONSE IS "WHAT THE FUCK DONT YOU UNDERSTAND WOMAN!?"
--- NOTE | 2019-01-05 11:15 | NUR ---
PATIENT IS REFUSING MAGNESIUM OXIDE WHICH WAS ORDERED FOR A MAG LEVEL OF 1.7, EDUCATED PATIENT ON RISK OF REFUSAL OF MEDICATION, PATIENT AGAIN REFUSED.
--- NOTE | 2019-01-05 11:25 | NUR ---
DR GARCIA AND DR HSIEH WENT IN TO TALK TO PATIENT ABOUT THE RISKS OF GOING AMA. PATIENT REFUSED TO SIGN AMA FORM AND STATES HE WILL BE LEAVING. PATIENT REFUSES ANY FURTHER TREATMENT AT THIS TIME AND SAYS HE IS LEAVING
--- NOTE | 2019-01-05 11:35 | NUR ---
Spoke with patient who is alert and oriented , as the nursing area supervisor on duty, as he had not left the room despite notifying us he is leaving against medical advice and refusing medical care from us. I asked him if he still wished to leave against our medical advice and he said "yes". I advised him that since that is what he wants to do that we need him to vacate the room. I advised him and his family member that if he feels worse or changes his mind to come back to the emergency room for treatment. He left the room and facility ambulating with a steady gate with his family member.
--- NOTE | 2019-01-05 11:35 | NUR ---
PATIENT STILL REFUSING TO SIGN AMA FORM, BUT LEFT WITH SECURITY AND FIANCE . PATIENT WAS EDUCATED ON THE RISKS OF LEAVING AMA AND IF HE HAS WORSENING SYMPTOMS HE MAY COME BACK TO THE ER. PATIENT VERBALIZED UNDERSTANDING AND WALKED OUT WITH SECURITY. BEFORE LEAVING PATIENT WAS EDUCATED ON RISKS OF LEAVING AMA BY PHOTO TECHNICIAN, DR. HSIEH, DR. GARCIA, AND NURSE JAIRO AND MYSELF.
== END 2019-01-05 11:35 | disposition left against medical advice (07) | DRG 254 ==
LOC: MED 12:34 → MTU 19:28
PROVIDERS: ADMIT Family Medicine; ATTEND Family Medicine
DX: K42.0 Umbilical hernia with obstruction, without gangrene (principal); K56.609 Unspecified intestinal obstruction, unspecified as to partial versus complete obstruction; E83.42 Hypomagnesemia; K43.6 Other and unspecified ventral hernia with obstruction, without gangrene; F12.90 Cannabis use, unspecified, uncomplicated; F17.210 Nicotine dependence, cigarettes, uncomplicated; I10 Essential (primary) hypertension; D72.829 Elevated white blood cell count, unspecified; F15.90 Other stimulant use, unspecified, uncomplicated; Z53.21 Procedure and treatment not carried out due to patient leaving prior to being seen by health care provider; Z79.899 Other long term (current) drug therapy; Z90.49 Acquired absence of other specified parts of digestive tract; Z91.19 Patient's noncompliance with other medical treatment and regimen
CPT/HCPCS: 36415; 71045; 80048; 80053; 80305; 81003; 82150; 83036; 83690; 83735; 83880; 84100; 84443; 84484; 84703; 85025; 85610; 85730; 87081; 93005; 96361; 96372; 96374; 99285; G0482; J0696; J1200; J1630; J2270; J2550; J3490; J7030; J7060; Q0092; Q9967

== ENCOUNTER 2019-02-21 21:41 | Emergency (ER) | payer MEDICAID ==
[~2019-02-21] VITALS: Ht 167.6 cm; Wt 79.8 kg
[2019-02-21 21:54] VITALS: BP 115/66
--- NOTE | 2019-02-21 21:57 | NUR ---
TO LOBBY A/W BED , AMBULATORY
--- NOTE | 2019-02-21 21:58 | NUR ---
Note undone in EDM - 02/21/19 at 2331 by [email or web address] PATIENT CAME INTO ER WITH C/O COUGH, FEVER, DIARRHEA X 2 DAYS. PT DENIES VOMITING. NO FEVER AT THIS TIME. PATIENT STATES PAIN OF 8/10 AT THIS TIME; PT STATED HE HAS BODY ACHES ALL OVER. VSS; PATIENT POSITIONED FOR COMFORT; PT IS A/OX4. HOB ELEVATED; BEDRAILS UP X2; BED DOWN. ER MD MADE AWARE OF PT STATUS.
--- NOTE | 2019-02-21 22:15 | NUR ---
PT TAKEN TO BED 3
--- NOTE | 2019-02-21 22:17 | NUR ---
PATIENT CAME INTO ER WITH C/O COUGH, FEVER, DIARRHEA X 2 DAYS. PT DENIES VOMITING. NO FEVER AT THIS TIME. PATIENT STATES PAIN OF 8/10 AT THIS TIME; PT STATED HE HAS BODY ACHES ALL OVER. VSS; PATIENT POSITIONED FOR COMFORT; PT IS A/OX4. HOB ELEVATED; BEDRAILS UP X2; BED DOWN. ER MD MADE AWARE OF PT STATUS.
--- NOTE | 2019-02-21 22:30 | NUR ---
X-Ray at bedside.
[2019-02-21] MEDS ORDERED: ALBUTEROL SULFATE/IPRATROPIU 3 ML SOL IH ONE (22:45)
[2019-02-21 23:25] VITALS: BP 115/66
--- NOTE | 2019-02-21 23:25 | NUR ---
Patient discharged with v/s stable. Written and verbal after care instructions given and explained. Patient alert, oriented and verbalized understanding of instructions. Ambulatory with steady gait. All questions addressed prior to discharge. ID band removed. Patient advised to follow up with PMD. Rx of PROMETHAZINE, ALBUTEROL WAS given. Patient educated on indication of medication including possible reaction and side effects. Opportunity to ask questions provided and answered.
== END 2019-02-21 23:25 | disposition home or self-care (01) ==
LOC: MED 21:41
DX: J06.9 Acute upper respiratory infection, unspecified (principal); J40 Bronchitis, not specified as acute or chronic; F17.210 Nicotine dependence, cigarettes, uncomplicated
CPT/HCPCS: 71045; 94640; 99283; J7620

== ENCOUNTER 2019-03-23 01:05 | Emergency (ER) | payer MEDICAID ==
[~2019-03-23] VITALS: Ht 175.3 cm; Wt 86.2 kg
[2019-03-23 01:13] VITALS: BP 126/81
--- NOTE | 2019-03-23 01:17 | NUR ---
PT ABULATED BACK TO LOBBY, JASONS
--- NOTE | 2019-03-23 01:35 | NUR ---
PT TO ED WITH C/O TOOTHACHE LASTING 2 DAYS. PT REPORTS PAIN AND COLD/HEAT SENSITIVTY TO RT FRONT TEETH. PT DENIES INJURY OR TRAUMA TO FACE/MOUTH. PT PLACED INTO BED, PENDING MD MEDEROS.
--- NOTE | 2019-03-23 02:09 | NUR ---
AT PT BEDSIDE
[2019-03-23] MEDS ORDERED: PENICILLIN V POTASSIUM 250 MG TAB PO ONE (02:15)
[2019-03-23 02:34] VITALS: BP 126/81
--- NOTE | 2019-03-23 02:34 | NUR ---
Patient discharged with v/s stable. Written and verbal after care instructions given and explained. Patient alert, oriented and verbalized understanding of instructions. Ambulatory with steady gait. All questions addressed prior to discharge. ID band removed. Patient advised to follow up with PMD. Rx of norco and penicillin was given. Patient educated on indication of medication including possible reaction and side effects. Opportunity to ask questions provided and answered. pt took a vicodin prior to er. pt had no pain upon d/c. instructed to follow up with pcp and dentist for reevaluation
== END 2019-03-23 02:34 | disposition home or self-care (01) ==
LOC: MED 01:05
DX: K08.89 Other specified disorders of teeth and supporting structures (principal)
CPT/HCPCS: 99283

== ENCOUNTER 2019-10-22 00:48 | Emergency (ER) | payer MEDICAID ==
[~2019-10-22] VITALS: Ht 160 cm; Wt 86.6 kg
[2019-10-22 00:56] VITALS: BP 135/73
--- NOTE | 2019-10-22 01:00 | NUR ---
PT AMBULATED TO BED 4 WITH STEADY GAIT.
--- NOTE | 2019-10-22 01:12 | NUR ---
Dr. Guzman examining patient.
[2019-10-22] MEDS ORDERED: ACETAMIN/CODEINE 120/12MG-5ML 5 ML UDC PO ONE (01:15)
--- NOTE | 2019-10-22 01:15 | NUR ---
49 YEAR OLD MALE COMPLAINS OF PRODUCTIVE COUGH X 1 WEEK. PATIENT STATES THAT HE ALSO HAS SHORTNESS OF BREATHE. PATIENT LUNGS CTABL, BREATHING EVEN AND UNLABORED. PATIENT ALERT AND ORIENTED, SKIN WARM AND DRY. BED IN LOWEST POSITION, LOCKED, BED RAIL UPX1. AT BEDSIDE PMH - DENIES MEDICATIONS - NONE ALLERGIES - NKA
[2019-10-22 01:50] VITALS: BP 135/73
--- NOTE | 2019-10-22 01:50 | NUR ---
Patient discharged with v/s stable. Written and verbal after care instructions ABOUT ACUTE BRONCHITIS AND SMOKING CESSATION given and explained. Patient alert, oriented and verbalized understanding of instructions. Ambulatory with steady gait. All questions addressed prior to discharge. ID band removed. Patient advised to follow up with PMD. Rx of ALBUTEROL, AZITHROMYCIN, AND GUAIATUSSIN AC given. Patient educated on indication of medication including possible reaction and side effects. Opportunity to ask questions provided and answered. STATES THAT SHE WILL DRIVE PATIENT HOME
== END 2019-10-22 01:50 | disposition home or self-care (01) ==
LOC: MED 00:48
DX: J40 Bronchitis, not specified as acute or chronic (principal); Z90.49 Acquired absence of other specified parts of digestive tract; F17.210 Nicotine dependence, cigarettes, uncomplicated
CPT/HCPCS: 99283

== ENCOUNTER 2019-10-27 17:17 | Emergency (ER) | payer SELFPAY ==
[~2019-10-27] VITALS: Ht 165.1 cm; Wt 86.6 kg
[2019-10-27 17:29] VITALS: BP 107/76
--- NOTE | 2019-10-27 17:34 | NUR ---
PATIENT PRESENTS TO ED WITH BILATERAL SHOULDER PAIN (HX--TORN ROTATOR CUFF) PT REPORTS RASH ON FACE AFTER GETTING OUT OF HALF-WAY, ALSO C/O SHORTNESS OF BREATH. NO DISTRESS NOTED. PATIENT STATES PAIN OF 8/10 AT THIS TIME; VSS; PATIENT POSITIONED FOR COMFORT; HOB ELEVATED; BEDRAILS UP X2; BED DOWN. ER MD MADE AWARE OF PT STATUS.
--- NOTE | 2019-10-27 17:37 | NUR ---
Patient being evaluated by physician at bedside.
[2019-10-27] MEDS ORDERED: ALBUTEROL SULFATE/IPRATROPIU 3 ML SOL IH ONE (17:40)
[2019-10-27] MEDS ORDERED: IBUPROFEN 800 MG TAB PO ONE (17:40)
[2019-10-27] MEDS: methylPREDNISolone SS 125 MG/2 ML VIAL IM ONE ×2 (17:49→17:58)
--- NOTE | 2019-10-27 17:49 | NUR ---
PATIENT REFUSED SOLUMETROL AT THIS TIME, RISK AND BENEFIT EXPLAINED TO PATIENT, PATIENT WOUND LIKE TO TAKE PILLS, DR. OSORIO MADE AWARE.
--- NOTE | 2019-10-27 17:58 | NUR ---
PATIENT DECIDED TO TAKE SOLUMETROL AGAIN, ADMINISTERED TO RIGHT ARM, PATIENT WAS AGITATED DUE TO PAIN, SELF TALKING TO BAD WORDS, CHARGE NURSE MADE AWARE.
[2019-10-27] MEDS ORDERED: predniSONE 20 MG TAB PO ONE (18:05)
--- NOTE | 2019-10-27 18:10 | NUR ---
PATIENT IS CLAM AT THIS TIME.
[2019-10-27 19:00] VITALS: BP 107/76
--- NOTE | 2019-10-27 19:00 | NUR ---
Patient discharged with v/s stable. Written and verbal after care instructions given and explained. Rx of IBUPROFEN, FLEXERIL, MEDROL, CORTIZONE CREAM, VETOLIN INHALATION given. Patient educated on indication of medication including possible reaction and side effects. All questions addressed prior to discharge. ID band removed. Patient advised to follow up with PMD.
== END 2019-10-27 19:00 | disposition home or self-care (01) ==
LOC: MED 17:17
DX: J20.9 Acute bronchitis, unspecified (principal); G89.29 Other chronic pain; M25.511 Pain in right shoulder; M25.512 Pain in left shoulder; R21 Rash and other nonspecific skin eruption
CPT/HCPCS: 71045; 94640; 96372; 99283; J2930; J7620; Q0092

== ENCOUNTER 2020-01-17 14:18 | Emergency (ER) | payer MEDICAID ==
[~2020-01-17] VITALS: Ht 167.6 cm; Wt 85.3 kg
--- NOTE | 2020-01-17 14:35 | NUR ---
PT LOCKED HIS KEYS INSIDE HIS CAR AND REQUESTED TO BE SEEN AFTER HIS CAR IS OPEN BY SECURITY. SUSTAINABILITY OFFICER CAROL NOTIFIED.
--- NOTE | 2020-01-17 15:09 | NUR ---
WENT OUT TO SPEAK WITH PATIENT AND PT WAS FOUND BY A CAR USING A SHOWER ENCLOSURE INSTALLER TO TRY AND UNLOCK HIS CAR. PT WAS ASKED IF HE WANTS TO BE SEEN BY THE ER DOCTOR AND PATIENT STATED YES "BUT I LOCKED MY RODRIGES IN THE CAR AND MY IS INSIDE." PT STATES "I WILL BE 5 MORE MINUTES."
--- NOTE | 2020-01-17 15:10 | NUR ---
PT W/ SECURITY IS STILL TRYING TO OPEN HIS CAR AND DOES NOT WANT TO BE SEEN AT THIS TIME UNTIL HIS CAR IS OPEN. AGAIN INFORMED SECURITY TO CALL PURIFICATION DIRECTOR WHEN PT IS READY. NO DISTRESS NOTED AT THIS TIME W/ PT.
--- NOTE | 2020-01-17 15:24 | NUR ---
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
--- NOTE | 2020-01-17 16:15 | NUR ---
PT STILL TRYING TO OPEN HIS CAR W/ SECURITY. DOES NOT WANT TO BE SEEN AT THIS TIME.
--- NOTE | 2020-01-17 17:30 | NUR ---
PER PT WANTS TO SMOKE AT THIS TIME. SECURITY WILL CALL WHEN READY. PIPING DESIGN SPECIALIST CAROL AND DR HERRON NOTIFIED.
--- NOTE | 2020-01-17 17:38 | NUR ---
AMBULATED TO BED 2
[2020-01-17 17:39] VITALS: BP 145/79
[2020-01-17 18:07] VITALS: BP 145/79
== END 2020-01-17 18:08 | disposition home or self-care (01) ==
LOC: MED 14:18
DX: K52.9 Noninfective gastroenteritis and colitis, unspecified (principal); R05 Cough; R50.9 Fever, unspecified
CPT/HCPCS: 99283

== ENCOUNTER 2021-01-10 07:20 | Emergency (ER) | payer MEDICAID ==
[~2021-01-10] VITALS: Ht 167.6 cm; Wt 96.2 kg
[2021-01-10 07:27] VITALS: BP 129/80
--- NOTE | 2021-01-10 07:38 | NUR ---
Patient ambulated to bed 4. RN evaluating the patient at bedside.
--- NOTE | 2021-01-10 07:45 | NUR ---
Patient ambulated to restroom for urine sample collection.
--- NOTE | 2021-01-10 07:48 | NUR ---
Dr. Guzman is evaluating patient at bedside.
[2021-01-10] MEDS ORDERED: DOCUSATE SODIUM 100 MG GELCAP PO STA (07:51)
--- NOTE | 2021-01-10 07:52 | NUR ---
50 Y/O MALE PRESENT WITH LLQ ABDOMINAL PAIN X1 MONTH, PT ALSO COMPLAINING OF PAIN AT RLQ SITE, NEAR A PREVIOUS HERNIA. NO DISTENTION NOTED AT THIS TIME, BOWEL SOUNDS NORMOACTIVE, LBM: 01/09/21. TENDER UPON PALPITATION. DENIES ANY N/V/D. DENIES ANY FEVER/CHILLS
[2021-01-10] MEDS ORDERED: HYDROcodone/APAP 5/325 MG 1 TAB TAB PO ONE (07:55)
--- NOTE | 2021-01-10 08:12 | NUR ---
Patient presents with both eyes closed sitting in semi-fowlers position. States positive pain relief after [place] administration; rates pain 5/10 at this time. Respirations even/unlabored. Bed locked in lowest position, side rails x 1, call light in reach.
--- NOTE | 2021-01-10 08:22 | NUR ---
Patient taken to CT scan via wheelchair by tech.
--- NOTE | 2021-01-10 08:36 | NUR ---
PT BROUGHT BACK TO BED FROM CT SCAN
--- NOTE | 2021-01-10 08:55 | NUR ---
Patient does not wish to proceed with medical care recommended by JALEESA. Patient given information related to possible complications, up to and including , which could occur as a result of leaving hospital at this time. Patient verbalizes understanding of risks involved leaving against medical advice. Patient has signed AMA form.
[2021-01-10 08:56] VITALS: BP 129/80
== END 2021-01-10 08:55 | disposition left against medical advice (07) ==
LOC: MED 07:20
DX: R10.30 Lower abdominal pain, unspecified (principal); K59.00 Constipation, unspecified; X50.0XXA Overexertion from strenuous movement or load, initial encounter; Y93.89 Activity, other specified; Y92.89 Other specified places as the place of occurrence of the external cause; Y99.8 Other external cause status
CPT/HCPCS: 99284

== ENCOUNTER 2021-04-21 02:20 | Emergency (ER) | payer MEDICAID ==
[~2021-04-21] VITALS: Ht 167.6 cm; Wt 90.7 kg
[2021-04-21 02:40] VITALS: BP 119/73
[2021-04-21] MEDS ORDERED: TRAM50TA3 PO ×2 (03:34→03:35)
[2021-04-21 03:55] VITALS: BP 110/80
== END 2021-04-21 03:55 | disposition home or self-care (01) ==
LOC: MED 02:20
DX: G89.29 Other chronic pain (principal); M54.9 Dorsalgia, unspecified
CPT/HCPCS: 99283

== ENCOUNTER 2021-11-01 10:08 | Emergency (ER) | payer MEDICAID ==
[~2021-11-01] VITALS: Ht 165.1 cm; Wt 90.7 kg
[~2021-11-01 10:08] MED LIST changes: -ACET-1182 PO; -DOCU-299 PO; -HYDR-5092 PO; -IBUP-2213 PO; -MAGN400S60 PO; -MARIJUANA; -NICO14TD30 TD; -ONDA2SOL45 IM/IVP; -TOR30I IVP; +TRAM50TA3 PO
[2021-11-01 10:39] VITALS: BP 114/78
[2021-11-01] MEDS ORDERED: MORPHINE SULFATE 4 MG/ML SYR IM ONE (11:40)
[2021-11-01 12:37] LABS: BASOPHILS # (AUTO) 0.1 K/uL (0.00-0.22); EOSINOPHILS # (AUTO) 0.2 K/uL (0-0.4); HEMATOCRIT 42.7 % (36-52); HEMOGLOBIN 14.5 g/dL (12.0-18.0); LYMPHOCYTES # (AUTO) 2.5 K/uL (2.0-11.5); LYMPHOCYTES % (AUTO) 28.7 % (20.5-51.1); MEAN CORPUSCULAR HEMOGLOBIN 30 pg (27-31); MEAN CORPUSCULAR HGB CONC 34 g/dL (33-37); MEAN CORPUSCULAR VOLUME 88.9 fL (80-94); MONOCYTES # (AUTO) 0.8 K/uL (0.8-1.0); MONOCYTES % (AUTO) 9.6 % (1.7-9.3); NEUTROPHILS # (AUTO) 5.1 K/uL (1.8-7.7); NEUTROPHILS % (AUTO) 58.7 % (42.2-75.2); PLATELET COUNT (AUTO) 390 K/uL (140-450); RED BLOOD CELL COUNT(AUTO) 4.81 MIL/uL (4.20-6.10); RED CELL DISTRIBUTION WIDTH 13.4 % (11.6-13.7); WHITE BLOOD COUNT (AUTO) 8.6 K/uL (4.8-10.8)
[2021-11-01 12:43] LABS: ALBUMIN 3.4 g/dL (3.4-5.0); BILIRUBIN,DIRECT 0.1 mg/dL (0.0-0.3); TOTAL BILIRUBIN 0.3 mg/dL (0.0-1.0)
[2021-11-01 12:55] LABS: ANION GAP 11.6 (8-16); CARBON DIOXIDE 30.7 mmol/L (21-32); CREATININE 1.2 mg/dL (0.6-1.3); POTASSIUM 5.3 mmol/L (3.5-5.1)
[2021-11-01] MEDS ORDERED: MORPHINE SULFATE 4 MG/ML SYR ONE (13:04)
[2021-11-01] MEDS ORDERED: HYDROcodone/APAP 5/325 MG 1 TAB TAB ONE (13:11)
--- NOTE | 2021-11-01 13:11 | NUR ---
51 y/o male c/o throbbing abd pain radiates to right flank area for 1 week. denies n/v/d. denies dysuria, hematuria, urinary retention or frequency. denies syncope, loc or head/neck injury. skin is pink/warm/dry. aa&ox4 with even and steady gait. lungs clear bl. hr even and regular, cap refill <3, no edema present at this time. pt denies any fever, cp, sob or cough at this time. patient states pain is 8/10 at this time. ermd made aware of pt status. pmh: umbilical hernia nka
[2021-11-01] MEDS ORDERED: ACET-10509 PO (14:16)
[2021-11-01 15:24] VITALS: BP 123/84
--- NOTE | 2021-11-01 15:27 | NUR ---
Patient discharged with v/s stable. Written and verbal after care instructions given FOR HERNIA and explained. Patient alert, oriented and verbalized understanding of instructions. Ambulatory with steady gait. All questions addressed prior to discharge. ID band removed. Patient advised to follow up with PMD. Rx of TYNENOL given. Patient educated on indication of medication including possible reaction and side effects. Opportunity to ask questions provided and answered.
== END 2021-11-01 15:27 | disposition home or self-care (01) ==
LOC: MED 10:08
DX: K46.9 Unspecified abdominal hernia without obstruction or gangrene (principal); Z79.899 Other long term (current) drug therapy; Z90.49 Acquired absence of other specified parts of digestive tract; Z98.890 Other specified postprocedural states
CPT/HCPCS: 36415; 71045; 80048; 80076; 83605; 83690; 84484; 85025; 93005; 99285; J2270

== ENCOUNTER 2022-06-28 11:43 | Emergency (ER) | payer MEDICAID ==
[~2022-06-28] VITALS: Ht 160 cm; Wt 104.3 kg
[~2022-06-28 11:43] MED LIST changes: +ACET-10509 PO
[2022-06-28 11:54] VITALS: BP 133/94
--- NOTE | 2022-06-28 11:58 | NUR ---
PT AMBULATED TO LOBBY
--- NOTE | 2022-06-28 11:59 | NUR ---
52 Y/O MALE BIB SELF C/O LEFT FACE/JAW SWELLINGXYESTERDAY, TOOTHACHE 2DAYS. TOOK VICODIN YESTERDAY PM. 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
[2022-06-28] MEDS ORDERED: AMOX-1230 PO (13:06)
[2022-06-28] MEDS ORDERED: IBUP-2213 PO (13:06)
[2022-06-28] MEDS ORDERED: ACET-8386 PO (13:07)
--- NOTE | 2022-06-28 13:14 | NUR ---
Patient discharged with v/s stable. Written and verbal after care instructions given and explained. Patient alert, oriented and verbalized understanding of instructions. Ambulatory with steady gait. All questions addressed prior to discharge. ID band removed. Patient advised to follow up with PMD. Rx of augmentin, norco, motrin given. Patient educated on indication of medication including possible reaction and side effects. Opportunity to ask questions provided and answered.
== END 2022-06-28 13:10 | disposition home or self-care (01) ==
LOC: MED 11:43
DX: K02.9 Dental caries, unspecified (principal)
CPT/HCPCS: 99283

== ENCOUNTER 2023-02-12 02:32 | Emergency (ER) | payer MEDICAID ==
[~2023-02-12] VITALS: Ht 167.6 cm; Wt 57.2 kg
[~2023-02-12 02:32] MED LIST changes: +ACET-8905 PO; +AMOX-1230 PO; +IBUP-2213 PO
[2023-02-12 02:41] VITALS: BP 136/84
--- NOTE | 2023-02-12 03:43 | NUR ---
PT RETURN FROM RADIOLOGY
[2023-02-12 04:08] LABS: BASOPHILS # (AUTO) 0.1 K/uL (0.00-0.22); BASOPHILS % (AUTO) 1.1 % (0.0-2.0); EOSINOPHILS # (AUTO) 0.3 K/uL (0-0.4); EOSINOPHILS % (AUTO) 2.3 % (0.0-4.0); HEMATOCRIT 45.3 % (36-52); HEMOGLOBIN 15.1 g/dL (12.0-18.0); LYMPHOCYTES # (AUTO) 3.3 K/uL (2.0-11.5); LYMPHOCYTES % (AUTO) 28.2 % (20.5-51.1); MEAN CORPUSCULAR HEMOGLOBIN 29 pg (27-31); MEAN CORPUSCULAR HGB CONC 33 g/dL (33-37); MEAN CORPUSCULAR VOLUME 87.3 fL (80-94); MONOCYTES % (AUTO) 8.8 % (1.7-9.3); NEUTROPHILS # (AUTO) 6.9 K/uL (1.8-7.7); NEUTROPHILS % (AUTO) 59.6 % (42.2-75.2); PLATELET COUNT (AUTO) 303 K/uL (140-450); RED BLOOD CELL COUNT(AUTO) 5.19 MIL/uL (4.20-6.10); RED CELL DISTRIBUTION WIDTH 14.2 % (11.6-13.7); WHITE BLOOD COUNT (AUTO) 11.6 K/uL (4.8-10.8)
[2023-02-12 04:26] LABS: ALBUMIN 3.6 g/dL (3.4-5.0); ANION GAP 11.3 (8-16); CARBON DIOXIDE 29.8 mmol/L (21-32); CREATININE 1.2 mg/dL (0.6-1.3); POTASSIUM 4.1 mmol/L (3.5-5.1); TOTAL BILIRUBIN 0.3 mg/dL (0.0-1.0)
[2023-02-12 06:00] VITALS: BP 136/84
== END 2023-02-12 06:00 | disposition home or self-care (01) ==
LOC: MED 02:32
DX: A05.9 Bacterial foodborne intoxication, unspecified (principal); R10.84 Generalized abdominal pain; Z90.49 Acquired absence of other specified parts of digestive tract; Z79.899 Other long term (current) drug therapy
CPT/HCPCS: 36415; 80053; 85025; 87040; 99284

== ENCOUNTER 2023-03-29 03:10 | Emergency (ER) | payer MEDICAID ==
[~2023-03-29] VITALS: Ht 165.1 cm; Wt 100.7 kg
[2023-03-29 03:20] VITALS: BP 127/84
--- NOTE | 2023-03-29 03:20 | NUR ---
TO BED AMBULATORY
--- NOTE | 2023-03-29 03:57 | NUR ---
MD Skinner at bedside examining pt.
[2023-03-29] MEDS ORDERED: predniSONE 20 MG TAB PO ONE (04:05)
[2023-03-29] MEDS ORDERED: ALBUTEROL SULFATE/IPRATROPIU 3 ML SOL IH ONE (04:05)
[2023-03-29] MEDS ORDERED: AZIT250T4 PO (04:08)
[2023-03-29] MEDS ORDERED: ALBU0.0912 INH (04:08)
[2023-03-29] MEDS ORDERED: PRED20TA5 PO (04:08)
--- NOTE | 2023-03-29 04:10 | NUR ---
RT at bedside for breathing tx.
--- NOTE | 2023-03-29 04:38 | NUR ---
swabs collected and sent tolab
--- NOTE | 2023-03-29 05:16 | NUR ---
Patient discharged with v/s stable. Written and verbal after care instructions given and explained. Patient alert, oriented and verbalized understanding of instructions. Ambulatory with steady gait. All questions addressed prior to discharge. ID band removed. Patient advised to follow up with PMD. Rx of albuterol sulfate, azithromycin, prednisone given. Opportunity to ask questions provided and answered.
== END 2023-03-29 05:16 | disposition home or self-care (01) ==
LOC: MED 03:10
DX: R05.9 Cough, unspecified (principal); R06.2 Wheezing; F17.210 Nicotine dependence, cigarettes, uncomplicated; Z71.6 Tobacco abuse counseling; Z79.899 Other long term (current) drug therapy; Z20.822 Contact with and (suspected) exposure to COVID-19
CPT/HCPCS: 71045; 87426; 87804; 94640; 99284; J7512; Q0092

== ENCOUNTER 2023-09-14 02:15 | Emergency (ER) | payer MEDICAID ==
[~2023-09-14] VITALS: Ht 165.1 cm; Wt 99.8 kg
[~2023-09-14 02:15] MED LIST changes: +ALBU0.0912 INH; +AZIT250T4 PO; +PRED20TA5 PO
[2023-09-14 02:35] VITALS: BP 142/86; PULSE 97; RESP 16; TEMP 98.6; O2SAT 99
[2023-09-14 03:14] LABS: FLU A ANTIGEN negative (NEGATIVE); FLU B ANTIGEN NEGATIVE (NEGATIVE)
[2023-09-14] MEDS ORDERED: predniSONE 20 MG TAB PO ONE (04:20)
[2023-09-14] MEDS ORDERED: ALBUTEROL SULFATE/IPRATROPIU 3 ML SOL IH ONE (04:20)
[2023-09-14 04:24] VITALS: PULSE 98; RESP 20; O2SAT 94
[2023-09-14] MEDS ORDERED: AZIT250T4 PO (04:35)
[2023-09-14] MEDS ORDERED: METH4TAB1 PO (04:35)
[2023-09-14] MEDS ORDERED: BENZ200C4 PO (04:35)
[2023-09-14] MEDS ORDERED: ALBU0.0912 INH (04:35)
[2023-09-14] MEDS ORDERED: GUAI118L81 PO (04:35)
[2023-09-14 04:45] VITALS: BP 142/86; PULSE 98; RESP 20; TEMP 98.6; O2SAT 94
== END 2023-09-14 04:45 | disposition home or self-care (01) ==
LOC: MED 02:15
DX: J45.909 Unspecified asthma, uncomplicated (principal); I10 Essential (primary) hypertension; Z20.822 Contact with and (suspected) exposure to COVID-19; Z87.891 Personal history of nicotine dependence; Z79.899 Other long term (current) drug therapy; Z79.2 Long term (current) use of antibiotics; Z79.1 Long term (current) use of non-steroidal anti-inflammatories (NSAID)
CPT/HCPCS: 94640; 99283

== ENCOUNTER 2023-12-15 18:01 | Emergency (ER) | payer MEDICAID, OTHER ==
[~2023-12-15] VITALS: Ht 167.6 cm; Wt 99.8 kg
[~2023-12-15 18:01] MED LIST changes: +BENZ200C4 PO; +GUAI118L81 PO; +METH4TAB1 PO
[2023-12-15 18:03] VITALS: BP 139/1; PULSE 88; RESP 18; TEMP 97.8; O2SAT 99
== END 2023-12-15 19:30 | disposition home or self-care (01) ==
LOC: MED 18:01
DX: Z00.8 Encounter for other general examination (principal); Z20.822 Contact with and (suspected) exposure to COVID-19; J44.9 Chronic obstructive pulmonary disease, unspecified; Z79.899 Other long term (current) drug therapy
CPT/HCPCS: 99283

== ENCOUNTER 2024-05-11 23:31 | Emergency (ER) | payer OTHER ==
[~2024-05-11] VITALS: Ht 165.1 cm; Wt 90.7 kg
[2024-05-11 23:50] VITALS: BP 130/77; PULSE 91; RESP 17; TEMP 98.6; O2SAT 97
[2024-05-12] MEDS ORDERED: AMOX-1230 PO (01:20)
[2024-05-12] MEDS: HYDROcodone/APAP 5/325 MG 1 TAB TAB PO ONE (01:20)
[2024-05-12] MEDS ORDERED: ACET-8905 PO (01:21)
[2024-05-12] MEDS ORDERED: HYDR-5071 PO (01:27)
== END 2024-05-12 01:36 | disposition home or self-care (01) ==
LOC: MED 23:31
DX: S02.5XXA Fracture of tooth (traumatic), initial encounter for closed fracture (principal); J44.9 Chronic obstructive pulmonary disease, unspecified; Z79.2 Long term (current) use of antibiotics; Z79.899 Other long term (current) drug therapy; Z98.818 Other dental procedure status; X58.XXXA Exposure to other specified factors, initial encounter; Y93.89 Activity, other specified; Y92.89 Other specified places as the place of occurrence of the external cause; Y99.8 Other external cause status
CPT/HCPCS: 99283

== ENCOUNTER 2024-06-21 21:39 | Emergency (ER) | payer OTHER ==
[~2024-06-21] VITALS: Ht 167.6 cm; Wt 99.8 kg
[~2024-06-21 21:39] MED LIST changes: -ACET-10509 PO; +ACET500T99 PO; +HYDR-5071 PO
[2024-06-21 21:54] VITALS: BP 139/83; PULSE 95; RESP 18; TEMP 101.4; O2SAT 94
[2024-06-21] MEDS: ACETAMINOPHEN EXTRA STRENGTH 500 MG TAB PO ONE (23:39)
[2024-06-22] MEDS: NACL 0.9% 1,000 ML IV ONE (00:33)
[2024-06-22 00:53] LABS: ANION GAP 13.9 (8-16); CALCIUM 8.5 mg/dL (8.5-10.1); CARBON DIOXIDE 27.7 mmol/L (21-32); CREATININE 1.2 mg/dL (0.6-1.3); POTASSIUM 4.6 mmol/L (3.5-5.1)
[2024-06-22 01:02] LABS: BASOPHILS # (AUTO) 0.1 K/uL (0.00-0.22); BASOPHILS % (AUTO) 0.9 % (0.0-2.0); EOSINOPHILS # (AUTO) 0.1 K/uL (0-0.4); EOSINOPHILS % (AUTO) 0.6 % (0.0-4.0); HEMATOCRIT 45.6 % (36-52); HEMOGLOBIN 15.4 g/dL (12.0-18.0); LYMPHOCYTES % (AUTO) 23.1 % (20.5-51.1); MEAN CORPUSCULAR HEMOGLOBIN 31 pg (27-31); MEAN CORPUSCULAR HGB CONC 34 g/dL (33-37); MEAN CORPUSCULAR VOLUME 90.6 fL (80-94); MONOCYTES # (AUTO) 1.1 K/uL (0.8-1.0); MONOCYTES % (AUTO) 12.5 % (1.7-9.3); NEUTROPHILS # (AUTO) 5.3 K/uL (1.8-7.7); NEUTROPHILS % (AUTO) 62.9 % (42.2-75.2); PLATELET COUNT (AUTO) 248 K/uL (140-450); RED BLOOD CELL COUNT(AUTO) 5.03 MIL/uL (4.20-6.10); RED CELL DISTRIBUTION WIDTH 13.7 % (11.6-13.7); WHITE BLOOD COUNT (AUTO) 8.5 K/uL (4.8-10.8)
[2024-06-22 01:17] LABS: ALBUMIN 3.4 g/dL (3.4-5.0); TOTAL BILIRUBIN 0.3 mg/dL (0.0-1.0); TOTAL PROTEIN, SERUM 7.4 g/dL (6.4-8.2)
[2024-06-22 01:23] LABS: LACTIC ACID 1.1 mmol/L (0.4-2.0)
[2024-06-22] MEDS: metroNIDAZOLE 500 MG/NS PREMIX 100 ML IV ONE (01:45)
[2024-06-22 02:16] LABS: APPEARANCE,URINE CLEAR (CLEAR); BILIRUBIN,URINE NEGATIVE (NEGATIVE); BLOOD, URINE NEGATIVE (NEGATIVE); COLOR,URINE YELLOW (YELLOW); LEUKOCYTE ESTERASE ,URINE NEGATIVE (NEGATIVE); NITRITE, URINE NEGATIVE (NEGATIVE); PROTEIN,URINE NEGATIVE (NEGATIVE); UGLUCOSE NEGATIVE (NEGATIVE); UROBILINOGEN,URINE 0.2 EU/dL (0.2 - 1)
[2024-06-22] MEDS ORDERED: METR-435 PO (04:12)
[2024-06-22 04:15] VITALS: BP 109/73; PULSE 81; RESP 16; TEMP 97.6; O2SAT 97
== END 2024-06-22 04:15 | disposition home or self-care (01) ==
LOC: MED 21:39
DX: A09 Infectious gastroenteritis and colitis, unspecified (principal); Z90.49 Acquired absence of other specified parts of digestive tract; Z79.899 Other long term (current) drug therapy
CPT/HCPCS: 36415; 71045; 80048; 80076; 81003; 83605; 85025; 87040; 87086; 96361; 96365; 99284; J3490; J7030; Q0092